=== PATIENT | male | born 1965 | race Caucasian/White ===

== ENCOUNTER 2022-06-27 08:17 | Day surgery (SDC) | payer OTHER ==
--- NOTE | 2022-06-27 09:11 | NUR ---
Pt bib ems for removal of TDC. Procedure done in room at bedside by MARBELLA Cardoza. Pt tolerated procedure well. Pressure dressing in place on discharge, returned via same ems on gurney to facility.
== END 2022-06-27 09:15 ==
LOC: SSTAY O 08:17
PROVIDERS: ATTEND Radiology Vascular & Interventional Radiology
DX: Z49.01 Encounter for fitting and adjustment of extracorporeal dialysis catheter (principal); N17.9 Acute kidney failure, unspecified; Z79.899 Other long term (current) drug therapy
CPT/HCPCS: 36589; A4620; A6258; A6449